=== PATIENT | female | born 1995 | race Caucasian/White ===

== ENCOUNTER 2024-02-15 10:20 | Inpatient (IN) | payer MEDICAID ==
[~2024-02-15] VITALS: Ht 154.9 cm; Wt 88.9 kg
[2024-02-15] MEDS ORDERED: PRETAB PO (11:17)
[2024-02-15] MEDS ORDERED: OXYTOCIN 10 UNITS/ML VIAL IM SCH (11:25)
[2024-02-15] MEDS ORDERED: CARBOPROST 250 MCG/ML AMP IM PRN (11:25)
[2024-02-15] MEDS ORDERED: METHYLERGONOVINE 0.2 MG/ML AMP IM PRN ×2 (11:25→20:00)
[2024-02-15] MEDS: LACTATED RINGERS 1,000 ML IV SCH (12:06)
[2024-02-15 12:11] LABS: BASOPHILS % (AUTO) 0.3 % (0.0-2.0); EOSINOPHILS # (AUTO) 0.1 K/uL (0-0.4); EOSINOPHILS % (AUTO) 0.5 % (0.0-4.0); HEMATOCRIT 36.7 % (36-48); HEMOGLOBIN 12.4 g/dL (12.0-16.0); LYMPHOCYTES # (AUTO) 1.8 K/uL (2.5-16.5); LYMPHOCYTES % (AUTO) 15.3 % (20.5-51.1); MEAN CORPUSCULAR HEMOGLOBIN 30 pg (27-31); MEAN CORPUSCULAR HGB CONC 34 g/dL (33-37); MEAN CORPUSCULAR VOLUME 87.8 fL (80-94); MONOCYTES # (AUTO) 0.6 K/uL (0.8-1.0); MONOCYTES % (AUTO) 5.2 % (1.7-9.3); NEUTROPHILS # (AUTO) 9.2 K/uL (1.8-7.7); NEUTROPHILS % (AUTO) 78.7 % (42.2-75.2); PLATELET COUNT (AUTO) 232 K/uL (140-450); RED BLOOD CELL COUNT(AUTO) 4.18 MIL/uL (4.20-5.40); RED CELL DISTRIBUTION WIDTH 15.5 % (11.6-13.7); WHITE BLOOD COUNT (AUTO) 11.7 K/uL (4.8-10.8)
[2024-02-15 12:19] LABS: BILIRUBIN,URINE NEGATIVE (NEGATIVE); COLOR,URINE YELLOW (YELLOW); LEUKOCYTE ESTERASE ,URINE TRACE (NEGATIVE); NITRITE, URINE NEGATIVE (NEGATIVE); PROTEIN,URINE TRACE (NEGATIVE); UGLUCOSE NEGATIVE (NEGATIVE)
[2024-02-15 12:23] LABS: APPEARANCE,URINE SLIGHTLY HAZY (CLEAR); BLOOD, URINE 1+ (NEGATIVE); INR 0.88 (0.8-1.2); PARTIAL THROMBOPLASTIN TIME 25.5 secs (22-35.6); PROTHROMBIN TIME 9.3 secs (10.8-13.4)
[2024-02-15 12:24] LABS: ALBUMIN 2.5 g/dL (3.4-5.0); ANION GAP 15.6 (8-16); BACTERIA,URINE FEW /HPF (None Seen); CALCIUM 8.4 mg/dL (8.5-10.1); CARBON DIOXIDE 21.5 mmol/L (21-32); CREATININE 0.6 mg/dL (0.6-1.3); POTASSIUM 4.1 mmol/L (3.5-5.1); SQUAMOUS EPITHELIAL CELL,UR 20-50 /LPF (0-3 (FEW)); TOTAL BILIRUBIN 0.2 mg/dL (0.0-1.0); TOTAL PROTEIN, SERUM 6.7 g/dL (6.4-8.2); WBC,URINE 0-5 /HPF (0-5)
[2024-02-15] MEDS ORDERED: OXYTOCIN/0.9 % SODIUM CHLORIDE 500 ML IV ONE (13:11)
[2024-02-15] MEDS: OXYTOCIN/0.9 % SODIUM CHLORIDE 500 ML IV SCH (13:15)
[2024-02-15] MEDS ORDERED: ROPIVACAINE 0.2%/NS PREMIX 200 ML EPI ONE (16:14)
[2024-02-15] MEDS ORDERED: oxyCODONE/APAP 5/325 MG 1 TAB TAB PO PRN (20:00)
[2024-02-15] MEDS ORDERED: TEMAZEPAM 15 MG CAP PO PRN (20:00)
[2024-02-15] MEDS ORDERED: BENZOCAINE/MENTHOL 20%-0.5% 60 GM CAN TP PRN (20:00)
[2024-02-15] MEDS ORDERED: OXYTOCIN 10 UNITS/ML VIAL IM PRN (20:00)
[2024-02-15] MEDS ORDERED: METHYLERGONOVINE 0.2 MG TAB PO PRN (20:00)
[2024-02-15] MEDS ORDERED: DOCUSATE SOD/SENNA 50/8.6 MG 1 TAB PO SCH (21:00)
[2024-02-15] MEDS: oxyCODONE/APAP 5/325 MG 1 TAB TAB PO PRN (22:19)
[2024-02-16 20:11] LABS: HEMATOCRIT 32.5 % (36-48)
[2024-02-16] MEDS: IBUPROFEN 800 MG TAB PO PRN (21:42)
== END 2024-02-17 18:25 | disposition home or self-care (01) | DRG 560 ==
LOC: MLD 10:20 → OBSVTOIN 11:21 → MFCC 22:06
PROVIDERS: ADMIT Obstetrics & Gynecology; ATTEND Obstetrics & Gynecology
PROC: 10D07Z6 Extraction of Products of Conception, Vacuum, Via Natural or Artificial Opening (ICD-10-PCS; principal; 2024-02-16)
PROC: 0HQ9XZZ Repair Perineum Skin, External Approach (ICD-10-PCS; 2024-02-16)
PROC: 3E0R3BZ Introduction of Anesthetic Agent into Spinal Canal, Percutaneous Approach (ICD-10-PCS; 2024-02-16)
PROC: 00HU33Z Insertion of Infusion Device into Spinal Canal, Percutaneous Approach (ICD-10-PCS; 2024-02-16)
DX: O76 Abnormality in fetal heart rate and rhythm complicating labor and delivery (principal); Z37.0 Single live birth; R71.0 Precipitous drop in hematocrit; O70.0 First degree perineal laceration during delivery; Z3A.39 39 weeks gestation of pregnancy
CPT/HCPCS: 36415; 51702; 80053; 81001; 85018; 85025; 85610; 85730; 86592; 86886; 86900; 86901; 90715; J2590; J2795